=== PATIENT | male | born 1980 | race Caucasian/White ===

== ENCOUNTER 2016-08-08 10:06 | Observation (INO) | payer BC ==
[2016-08-08] MEDS ORDERED: BABY ASPIRIN 81 MG CHEW PO ONE (10:35)
--- NOTE | 2016-08-08 10:36 | ERPHSYRPT ---
- History of Present Illness Time Seen by Provider: 08/08/16 10:35 Source: patient Exam Limitations: clinical condition Patient Subjective Stated Complaint: Pulled a transmission out of a vehicle a week ago and was having neck and left shoulder pain. Also nausea. This has not went away and this am woke up with chest pain, left shoulderr neck and middle back pain. very diaphoretic and slightly sob. Triage Nursing Assessment: alert and oriented. pink warm and clammy. breath sounds clear and equal. normal heart tones. elevated b/p. no dependant edema Physician History: PATIENT PULLED TRANSMISSION OUT OF VEHICLE 1 WEEK AGO AND COMPLAINS OF SHARP PAINS BETWEEN SHOULDER BLADES X 5 DAYS, AND DEVELOPED SUBSTERNAL TIGHTNESS TODAY ASSOCIATED WITH DIAPHORESIS AND DYSPNEA. DENIES FEVER, COUGH, RADIATION OF PAIN TO JAW, SHOULDER OR BACK. Timing/Duration: day(s) Activities at Onset: none Quality: sharpness, stabbing (IN BACK, AND TIGHTNESS IN ANTERIOR CHEST) Location: substernal Chest Pain Radiation: no radiation Severity of Pain-Max: moderate Severity of Pain-Current: moderate Modifying Factors: Improves With: nothing Nitro Today/Relief: 0.4 mg x 3, provided by ED Aspirin Treatment Today: 81 mg x 4, provided at home Associated Symptoms: shortness of breath Prior Chest Pain/Cardiac Workup: no prior chest pain Allergies/Adverse Reactions: No Known Drug Allergies Allergy (Unverified 08/08/16 10:35) Home Medications: No Home Meds 1 [facility] UD 08/08/16 [History] Hx Influenza Vaccination/Date Given: No Hx Pneumococcal Vaccination/Date Given: No Immunizations Up to Date: Yes - Review of Systems Constitutional: No Fever, No Chills Eyes: No Symptoms Ears, Nose, & Throat: No Symptoms Respiratory: Dyspnea, No Cough Cardiac: Chest Pain, No Edema, No Syncope Abdominal/Gastrointestinal: No Abdominal Pain, No Nausea, No Vomiting, No Diarrhea Genitourinary Symptoms: No Symptoms, No Dysuria Musculoskeletal: No Symptoms, No Back Pain, No Neck Pain Skin: Skin Lesions, No Rash Neurological: No Dizziness, No Focal Weakness, No Sensory Changes Psychological: No Symptoms Endocrine: No Symptoms All Other Systems: Reviewed and Negative - Past Medical History Pertinent Past Medical History: No - Past Surgical History Past Surgical History: No - Social History Smoking Status: Light tobacco smoker Exposure to second hand smoke: No Drug Use: none Patient Lives Alone: No - Nursing Vital Signs Nursing Vital Signs: Initial Vital Signs Temperature 99.5 F Temperature Source Oral Pulse Rate [] 100 Pulse Rate 90 Respiratory Rate 18 Blood Pressure [] 124/80 Pain Intensity 0 - Physical Exam General Appearance: no apparent distress, alert Eye Exam: PERRL/EOMI, eyes nml inspection Ears, Nose, Throat Exam: normal ENT inspection, moist mucous membranes Neck Exam: normal inspection, non-tender, supple Respiratory Exam: normal breath sounds, lungs clear, No respiratory distress Cardiovascular Exam: regular rate/rhythm, normal heart sounds, tachycardia, No edema Gastrointestinal/Abdomen Exam: soft, normal bowel sounds (NONTENDER), No tenderness, No mass Back Exam: normal inspection, normal range of motion, other (NO PARASPINAL THORACIC TENDERNESS), No CVA tenderness, No vertebral tenderness Extremity Exam: normal inspection, normal range of motion Neurologic Exam: alert, oriented x 3, cooperative, normal mood/affect, nml cerebellar function, sensation nml, No motor deficits Skin Exam: normal color, warm, dry Lymphatic Exam: No adenopathy SpO2 Interpretation: normal SpO2: 95 Oxygen Delivery: Nasal Cannula - Course EKG Interpreted by Me: RATE, Sinus Tach, NORMAL AXIS - Radiology Exams Chest X-ray Interpretation: Interpreted by me, Negative Ordered Tests: Active Orders 24 hr Category Date Time Status Bedrest ROUTINE Activity 08/08/16 12:21 Ordered Bedrest with BRP/BSC ROUTINE Activity 08/08/16 12:22 Ordered Admission/Status Order ROUTINE Care 08/08/16 12:21 Ordered Call Admit Doctor for Orders ROUTINE Care 08/08/16 12:21 Ordered Kosher Inspector STAT Care 08/08/16 10:35 Active Code Status Order ROUTINE Care 08/08/16 12:22 Ordered EKG-ER Only STAT Care 08/08/16 10:35 Active EKG-ER Only STAT Care 08/08/16 11:36 Active IV Care Q6H Care 08/08/16 12:22 Ordered IV Insertion STAT Care 08/08/16 10:35 Active Implement Chest Pain Pathway ROUTINE Care 08/08/16 12:22 Ordered Oxygen-ED Only NASAL CANNULA 2 lpm Care 08/08/16 10:35 Active Juan Manuel Montgomerye, Apply ROUTINE Care 08/08/16 12:22 Ordered Telemetry ROUTINE Care 08/08/16 12:22 Ordered Vital Signs Q4H Care 08/08/16 12:21 Ordered Weight,Daily 0600 Care 08/08/16 12:22 Ordered Cardiac Diet Diet 08/08/16 Dinner Ordered CHEST 1 VIEW (PORTABLE) Stat Exams 08/08/16 10:35 Taken BMP Stat Lab 08/08/16 11:00 Completed CBC W DIFF Stat Lab 08/08/16 11:00 Completed D-DIMER QUANTITATION Stat Lab 08/08/16 11:00 Completed LIPID PROFILE AM.LAB Lab 08/09/16 04:00 Ordered TROPONIN Q3H Lab 08/08/16 11:00 Completed TROPONIN Q3H Lab 08/08/16 13:45 Ordered TROPONIN Q3H Lab 08/08/16 16:45 Ordered TROPONIN Q3H Lab 08/08/16 19:45 Ordered TROPONIN Q3H Lab 08/08/16 22:45 Ordered EKG Q8HX2,QAMX3,PRN RT 08/08/16 12:22 Ordered Oxygen NASAL CANNULA 2 lpm RT 08/08/16 12:24 Ordered Pulse Oximetry Q4H RT 08/08/16 12:22 Ordered Transfer Order Routine Transfer 08/08/16 12:21 Ordered Medication Summary Generic Name Dose Route Start Last Admin Trade Name Freq PRN Reason Stop Dose Admin Sodium Chloride 1,000 mls @ 100 mls/hr 08/08/16 10:45 08/08/16 10:47 Sodium Chloride 0.9% 1000 Ml IV 09/07/16 10:44 100 mls/hr .Q10H ARLIN Administration Discontinued Medications Generic Name Dose Route Start Last Admin Trade Name Freq PRN Reason Stop Dose Admin Aspirin 324 mg 08/08/16 10:35 08/08/16 10:46 Baby Aspirin 81 Mg Chew PO 08/08/16 10:36 Not Given STAT ONE Nitroglycerin 0.4 mg 08/08/16 10:47 08/08/16 10:40 Nitrostat 0.4 Mg (Ed) SL 08/08/16 10:48 0.4 mg STAT ONE Administration Nitroglycerin 0.4 mg 08/08/16 10:48 08/08/16 10:45 Nitrostat 0.4 Mg (Ed) SL 08/08/16 10:49 0.4 mg STAT ONE Administration Nitroglycerin 0.4 mg 08/08/16 11:00 06/04/17 10:50 Nitrostat 0.4 Mg Tablet SL 08/08/16 11:01 0.4 mg STAT ONE Administration Nitroglycerin 1 gm 08/08/16 11:58 08/08/16 12:12 Nitro-Bid 2% Ud Packets TOP 08/08/16 11:59 1 gm STAT ONE Administration Nitroglycerin Confirm 08/08/16 12:12 Nitro-Bid 2% Ud Packets Administered 08/08/16 12:13 Dose 1 gm .ROUTE .STK-MED ONE Lab/Rad Data: Laboratory Result Diagrams 08/08/16 11:00 08/08/16 11:00 Laboratory Results 08/08/16 08/08/16 08/08/16 Range/Units 11:00 11:00 11:00 WBC (4.0-10.5) K/mm3 RBC (4.1-5.6) M/mm3 Hgb (12.5-18.0) gm/dl Hct (42-50) % MCV (78-100) fl MCH (26-32) pg MCHC (32-36) g/dl RDW (11.5-14.0) % Plt Count (150-450) K/mm3 MPV (6-9.5) fl Gran % (36.0-66.0) % Lymphocytes % (24.0-44.0) % Monocytes % (0.0-12.0) % Eosinophils % (0.00-5.0) % Basophils % (0.0-0.4) % Basophils # (0-0.4) D-Dimer 384.40 (0.00-500.00) ng/mL Sodium 141 (136-145) mEq/L Potassium 3.9 (3.5-5.1) mEq/L Chloride 103 (98-107) mEq/L Carbon Dioxide 28.4 (21-32) mEq/L Anion Gap 13.3 (5-15) MEQ/L BUN 11 (9-20) mg/dL Creatinine 1.16 (0.55-1.30) mg/dl Estimated GFR > 60 ML/MIN Glucose 105 (70-110) MG/DL Calcium 9.9 (8.5-10.1) mg/dL Troponin I 0.038 (0.000-0.056) ng/ml 08/08/16 Range/Units 11:00 WBC 6.6 (4.0-10.5) K/mm3 RBC 5.82 H (4.1-5.6) M/mm3 Hgb 17.3 (12.5-18.0) gm/dl Hct 51.0 H (42-50) % MCV 87.6 (78-100) fl MCH 29.7 (26-32) pg MCHC 33.9 (32-36) g/dl RDW 13.1 (11.5-14.0) % Plt Count 171 (150-450) K/mm3 MPV 10.8 H (6-9.5) fl Gran % 54.8 (36.0-66.0) % Lymphocytes % 24.1 (24.0-44.0) % Monocytes % 20.2 H (0.0-12.0) % Eosinophils % 0.3 (0.00-5.0) % Basophils % 0.6 (0.0-0.4) % Basophils # 0.04 (0-0.4) D-Dimer (0.00-500.00) ng/mL Sodium (136-145) mEq/L Potassium (3.5-5.1) mEq/L Chloride (98-107) mEq/L Carbon Dioxide (21-32) mEq/L Anion Gap (5-15) MEQ/L BUN (9-20) mg/dL Creatinine (0.55-1.30) mg/dl Estimated GFR ML/MIN Glucose (70-110) MG/DL Calcium (8.5-10.1) mg/dL Troponin I (0.000-0.056) ng/ml - Progress Progress: improved Progress Note: 08/08/16 12:19 PATIENT TOOK BABY ASPIRIN 325MG AT HOME, GIVEN NTG SL X 3 DOSES WITH COMPLETE OF PAIN. Discussed with : Fidel Oswald (DISCUSSED WITH DR Landry JEAN [id number] ACCEPTS ADMISSION FOR OBSERVATION) - Departure Time of Disposition: 12:26 Departure Disposition: Observation Clinical Impression: Acute chest pain Condition: Stable Critical Care Time: No Referrals: DOCTOR,NO FAMILY [Primary Care Provider] -
[2016-08-08] MEDS ORDERED: Nitrostat 0.4 MG (ED) SL ONE ×2 (10:47→10:48)
[2016-08-08] MEDS: Sodium Chloride 0.9% 1000 ML 1,000 ML IV SCH ×2 (10:47→13:49)
[2016-08-08] MEDS ORDERED: Nitrostat 0.4 MG Tablet SL ONE (11:00)
[2016-08-08 11:24] LABS: BASOPHIL % 0.6 % (0.0-0.4); Eosinophil % 0.3 % (0.00-5.0); Granulocytes % 54.8 % (36.0-66.0); Lymphocytes % 24.1 % (24.0-44.0); Mean Cell Volume 87.6 fl (78-100); Mean Corpuscular Hemoglobin 29.7 pg (26-32); Mean Platelet Volume 10.8 fl (6-9.5); Monocytes % 20.2 % (0.0-12.0); Platelet Count 171 K/mm3 (150-450); Red Blood Count 5.82 M/mm3 (4.1-5.6); Red Cell Distribution Width 13.1 % (11.5-14.0); White Blood Count 6.6 K/mm3 (4.0-10.5)
[2016-08-08 11:37] LABS: ANION GAP 13.3 MEQ/L (5-15); BLOOD UREA NITROGEN 11 mg/dL (9-20); CHLORIDE 103 mEq/L (98-107); Carbon Dioxide 28.4 mEq/L (21-32); Glucose 105 MG/DL (70-110); Potassium 3.9 mEq/L (3.5-5.1); SODIUM 141 mEq/L (136-145)
[2016-08-08] MEDS ORDERED: NITRO-BID 2% UD PACKETS TOP ONE (11:58)
[2016-08-08] MEDS ORDERED: NITRO-BID 2% UD PACKETS ONE (12:12)
[2016-08-08] MEDS ORDERED: MORPHINE SULFATE 2 MG INJ IV PRN (12:21)
[2016-08-08] MEDS ORDERED: Zofran 4 MG/2 ML VIAL IV PRN (12:21)
[2016-08-08] MEDS ORDERED: MAALOX ES 30 ML UNIT DOSE PO PRN (12:21)
[2016-08-08] MEDS ORDERED: Senokot-S Tablet PO PRN (12:21)
[2016-08-08] MEDS ORDERED: MILK OF MAGNESIA 30 ML PO PRN (12:21)
[2016-08-08] MEDS ORDERED: TYLENOL 325 MG PO PRN (12:21)
[2016-08-08] MEDS ORDERED: Nitrostat 0.4 MG Tablet SL PRN (12:21)
[2016-08-08] MEDS ORDERED: Sodium Chloride 0.9% 500 ML 500 ML IV SCH (12:30)
--- NOTE | 2016-08-08 12:41 | XRAY ---
Indication: Chest pain. Comparison: July 07, 2009. Portable apical lordotic chest less inflated but remains clear. Heart is not enlarged. Bony thorax intact. Impression: Stable nonacute chest.
[2016-08-08] MEDS: NITRO-BID 2% UD PACKETS TOP SCH (20:07)
[2016-08-08] MEDS: Pepcid 20 MG VIAL IV SCH (21:37)
[2016-08-09] MEDS: Sodium Chloride 0.9% 1000 ML 1,000 ML IV SCH (00:54)
[2016-08-09] MEDS: NITRO-BID 2% UD PACKETS TOP SCH (05:57)
[2016-08-09] MEDS: Pepcid 20 MG VIAL IV SCH (09:21)
[2016-08-09] MEDS ORDERED: Ecotrin 325 MG PO SCH (10:00)
[2016-08-09] MEDS ORDERED: Toprol-Xl 25MG Tablets PO SCH (10:00)
[2016-08-09 11:54] VITALS: BP 138/91; PULSE 80
[2016-08-09 12:01] VITALS: O2SAT 99
--- NOTE | 2016-08-09 14:05 | PCM.SSS ---
History of Present Illness - Chief Complaint Chief Complaint: c/o mid neck pain History of Present Illness: is a 36 year old male.Pulled a transmission out of a vehicle a week ago and was having neck and left shoulder pain. Also nausea. This has not went away and this am woke up with chest pain, left shoulderr neck and middle back pain. very diaphoretic and slightly sob - Review of Systems Constitutional: No Fever, No Chills Eyes: No Symptoms Ears, Nose, & Throat: No Symptoms Respiratory: No Cough, No Short Of Breath Cardiac: Other (neck and mid back pain), No Chest Pain, No Edema, No Syncope Abdominal/Gastrointestinal: No Abdominal Pain, No Nausea, No Vomiting, No Diarrhea Genitourinary Symptoms: No Dysuria Musculoskeletal: No Back Pain, No Neck Pain Skin: No Rash Neurological: No Dizziness, No Focal Weakness, No Sensory Changes Psychological: No Symptoms Endocrine: No Symptoms Hematologic/Lymphatic: No Symptoms Immunological/Allergic: No Symptoms Medications & Allergies Home Medications: Home Medication List No Home Meds 1 [facility] UD 08/08/16 [History Confirmed 08/08/16] Allergies/Adverse Reactions: Allergies Allergy/AdvReac Type Severity Reaction Status Date / Time No Known Drug Allergies Allergy Unverified 08/08/16 10:35 - Past Medical History Past Medical History: No - Past Surgical History Past Surgical History: Yes GI Surgical History: Hernia Repair Musculskeletal Surgical Hx: Other Other Surgical History: "pinky finger" boxer fracture on left hand, right wrist fracture both had pins but have been removed. - Social History Smoking Status: Current some day smoker Exposure to second hand smoke: No Alcohol: Daily Drug Use: none - Physical Exam Vital Signs: Vital Signs - 24 hr Temp Pulse Resp BP Pulse Ox 08/09/16 12:00 99 08/09/16 11:53 98.6 F 80 20 138/91 97 08/09/16 08:00 98 08/09/16 07:52 98.7 F 92 H 21 136/90 95 08/09/16 05:24 97.9 F 68 18 122/74 98 08/09/16 04:00 98 08/09/16 00:00 98 08/08/16 23:30 98.1 F 87 20 123/85 98 08/08/16 20:00 99 08/08/16 19:45 98.4 F 93 H 18 139/76 99 08/08/16 16:34 97.6 F 97 H 18 108/62 96 08/08/16 16:00 95 08/08/16 14:44 95 General Appearance: no apparent distress, alert Neurologic Exam: alert, oriented x 3, cooperative, normal mood/affect, nml cerebellar function, nml station & gait, sensation nml, No motor deficits Eye Exam: PERRL/EOMI, eyes nml inspection Ears, Nose, Throat Exam: normal ENT inspection, TMs normal, pharynx normal, moist mucous membranes Neck Exam: normal inspection, non-tender, supple, full range of motion Respiratory Exam: normal breath sounds, lungs clear, No respiratory distress Cardiovascular Exam: regular rate/rhythm, normal heart sounds, normal peripheral pulses Gastrointestinal/Abdomen Exam: soft, normal bowel sounds, No tenderness, No mass Back Exam: normal inspection, normal range of motion, No CVA tenderness, No vertebral tenderness Extremity Exam: normal inspection, normal range of motion, pelvis stable Skin Exam: normal color, warm, dry, No rash Lymphatic Exam: No adenopathy Results - Labs Lab/Micro Results: Lab Results-Last 24 Hours 08/08/16 08/08/16 08/08/16 Range/Units 13:45 17:05 20:10 Troponin I 0.034 0.022 0.021 (0.000-0.056) ng/ml Triglycerides (30-200) mg/dL Cholesterol (100-200) mg/dL LDL Cholesterol (5-99) mg/dL HDL Cholesterol (35-60) mg/dL Heart Disease Risk Ratio 08/08/16 08/09/16 Range/Units 23:22 05:30 Troponin I 0.030 (0.000-0.056) ng/ml Triglycerides 94 (30-200) mg/dL Cholesterol 137 (100-200) mg/dL LDL Cholesterol 91 (5-99) mg/dL HDL Cholesterol 38 (35-60) mg/dL Heart Disease Risk Ratio 3.6 - Other Procedures and Tests Respiratory Therapy 08/10/16 05:00 EKG ROUTINE 08/11/16 05:00 EKG ROUTINE Assessment/Plan (1) Acute chest pain Current Visit: Yes Status: Acute Assessment & Plan: [place] ruled out, patient is chest pain free, will schedule stress test as outpatient Code(s): R07.9 - CHEST PAIN, UNSPECIFIED Hospital Summary - Hospital Course Hospital Course: Chief Complaint Diagnosis CP R/O [place] Allergies Allergy/AdvReac Type Severity Reaction Status Date / Time No Known Drug Allergies Allergy Unverified 08/08/16 10:35 Vital Signs (Last 24 hours) Temp Pulse Resp BP Pulse Ox 08/09/16 12:00 99 08/09/16 11:53 98.6 F 80 20 138/91 97 08/09/16 08:00 98 08/09/16 07:52 98.7 F 92 H 21 136/90 95 08/09/16 05:24 97.9 F 68 18 122/74 98 08/09/16 04:00 98 08/09/16 00:00 98 08/08/16 23:30 98.1 F 87 20 123/85 98 08/08/16 20:00 99 08/08/16 19:45 98.4 F 93 H 18 139/76 99 08/08/16 16:34 97.6 F 97 H 18 108/62 96 08/08/16 16:00 95 08/08/16 14:44 95 Home Medications Medication Instructions Recorded Confirmed Last Taken Type No Home Meds 1 [facility] UD 08/08/16 08/08/16 Unknown History Current Medications Generic Name Dose Route Start Last Admin Trade Name Freq PRN Reason Stop Dose Admin Acetaminophen 650 mg 08/08/16 12:21 08/08/16 16:42 Tylenol 325 Mg PO 09/07/16 12:20 650 mg Q4H PRN PRN Administration PAIN AND/OR FEVER Al Hydrox/Mg Hydrox/Simethicone 30 ml 08/08/16 12:21 Maalox Es 30 Ml Unit Dose PO 09/07/16 12:20 Q4H PRN PRN INDIGESTION Aspirin 325 mg 08/09/16 10:00 08/09/16 09:21 Ecotrin 325 Mg PO 09/08/16 09:59 325 mg DAILY ARLIN Administration Famotidine 20 mg 08/08/16 22:00 08/09/16 09:21 Pepcid 20 Mg Vial IV 09/07/16 21:59 20 mg Q12HT ARLIN Administration Sodium Chloride 1,000 mls @ 100 mls/hr 08/08/16 10:45 08/09/16 00:54 Sodium Chloride 0.9% 1000 Ml IV 09/07/16 10:44 100 mls/hr .Q10H ARLIN Administration Magnesium Hydroxide 30 - 60 ml 08/08/16 12:21 Milk Of Magnesia 30 Ml PO 09/07/16 12:20 QDP PRN CONSTIPATION Metoprolol Succinate 25 mg 08/09/16 10:00 08/09/16 09:21 Toprol-Xl 25mg Tablets PO 09/08/16 09:59 25 mg DAILY ARLIN Administration Morphine Sulfate 2 mg 08/08/16 12:21 Morphine Sulfate 2 Mg Inj IV 08/13/16 12:20 .Q15MIN PRN PRN CHEST PAIN Nitroglycerin 0.4 mg 08/08/16 12:21 Nitrostat 0.4 Mg Tablet SL 09/07/16 12:20 .Q5MIN PRN CHEST PAIN Nitroglycerin 1 gm 08/08/16 20:00 08/09/16 05:57 Nitro-Bid 2% Ud Packets TOP 09/07/16 19:59 Not Given Q8HT [facility] Ondansetron HCl 4 mg 08/08/16 12:21 Zofran 4 Mg/2 Ml Vial IV 09/07/16 12:20 Q4H PRN PRN NAUSEA/VOMITING Senna/Docusate Sodium 2 udtab 08/08/16 12:21 Senokot-S Tablet PO 09/07/16 12:20 BID PRN PRN CONSTIPATION Discontinued Medications Generic Name Dose Route Start Last Admin Trade Name Freq PRN Reason Stop Dose Admin Aspirin 324 mg 08/08/16 10:35 08/08/16 10:46 Baby Aspirin 81 Mg Chew PO 08/08/16 10:36 Not Given STAT ONE Sodium Chloride 500 mls @ 75 mls/hr 08/08/16 12:30 Sodium Chloride 0.9% 500 Ml IV 09/07/16 12:29 .Q6H40M [facility] Nitroglycerin 0.4 mg 08/08/16 10:47 08/08/16 10:40 Nitrostat 0.4 Mg (Ed) SL 08/08/16 10:48 0.4 mg STAT ONE Administration Nitroglycerin 0.4 mg 08/08/16 10:48 08/08/16 10:45 Nitrostat 0.4 Mg (Ed) SL 08/08/16 10:49 0.4 mg STAT ONE Administration Nitroglycerin 0.4 mg 08/08/16 11:00 08/08/16 10:50 Nitrostat 0.4 Mg Tablet SL 08/08/16 11:01 0.4 mg STAT ONE Administration Nitroglycerin 1 gm 08/08/16 11:58 08/08/16 12:12 Nitro-Bid 2% Ud Packets TOP 08/08/16 11:59 1 gm STAT ONE Administration Nitroglycerin Confirm 08/08/16 12:12 Nitro-Bid 2% Ud Packets Administered 08/08/16 12:13 Dose 1 gm .ROUTE .STK-MED ONE Intake & Output (Last 24 hours) 08/07/16 08/08/16 08/09/16 08/10/16 11:59 11:59 11:59 11:59 Intake Total 3412 720 Output Total 300 300 Balance 3112 420 Weight 108.862 kg 106.413 kg Laboratory Results (Last 24 hours) 08/09/16 08/08/16 08/08/16 05:30 23:22 20:10 Troponin I 0.030 0.021 Triglycerides 94 Cholesterol 137 LDL Cholesterol 91 HDL Cholesterol 38 Heart Disease Risk Ratio 3.6 08/08/16 08/08/16 17:05 13:45 Troponin I 0.022 0.034 Triglycerides Cholesterol LDL Cholesterol HDL Cholesterol Heart Disease Risk Ratio Orders (Last 24 hours) Category Date Time Status Twist Packer/Discharge Plan Cons 08/08/16 13:19 Active Cardiac Diet Diet 08/08/16 Dinner Active LIPID PROFILE AM.LAB Lab 08/09/16 05:30 Completed TROPONIN Q3H Lab 08/08/16 13:45 Completed TROPONIN Q3H Lab 08/08/16 17:05 Completed TROPONIN Q3H Lab 08/08/16 20:10 Completed TROPONIN Q3H Lab 08/08/16 23:22 Completed Aspirin EC 325 mg [Ecotrin 325 MG] Med 08/09/16 10:00 Active 325 mg PO DAILY Famotidine 20 mg Vial [Pepcid 20 MG VIAL] Med 08/08/16 22:00 Active 20 mg IV Q12HT Metoprolol Succinate 25 mg Xl* [Toprol-Xl 25MG Tablets* Med 08/09/16 10:00 Active ] 25 mg PO DAILY Nitroglycerin 2 %Ointment [Nitro-Bid 2% Ud Packets Med 08/08/16 20:00 Active *] 1 gm TOP Q8HT EKG ROUTINE RT 08/08/16 20:00 Completed EKG ROUTINE RT 08/09/16 05:00 Completed EKG ROUTINE RT 08/10/16 05:00 Active EKG ROUTINE RT 08/11/16 05:00 Active Smoking Cessation Education RT 08/08/16 13:47 Completed Patient Care Notes (Last 24 hours) 08/09/16 09:29 Nursing Note by Stephani Short Pt education regarding new drug Toprol XL gave to patient. Initialized on 08/09/16 09:29 - END OF NOTE 08/09/16 09:24 Case Management Note by Hillary Baird DISCHARGE PLAN REVIEWED, PROVIDES SELF CARE, INDEPENDENT WITH ALL ADL'S. PLAN TO RETURN HOME TO PRE EPISODIC LEVEL OF FNX. Initialized on 08/09/16 09:24 - END OF NOTE 08/09/16 05:46 Nursing Note by Kathya Barrios A patient was diaphoretic while sleeping. no c/o of chest pain or short or breath. tele reads SR with a HR 84. Initialized on 08/09/16 05:46 - END OF NOTE 08/08/16 18:02 Nursing Note by Stephani Short Pt states that the tylenol has not helped his headache, so nitropaste was removed at this time. This nurse instructed patient to let staff now if chest pain returns. Initialized on 08/08/16 18:02 - END OF NOTE - Vitals & Intake/Output Vital Signs: Vital Signs Temperature 98.6 F 08/09/16 11:53 Pulse Rate 80 08/09/16 11:53 Respiratory Rate 20 08/09/16 11:53 Blood Pressure 138/91 08/09/16 11:53 O2 Sat by Pulse Oximetry 99 08/09/16 12:00 Oxygen-Last Documented O2 Percentage 2 Liters = 28% Intake & Output: Intake & Output 08/07/16 08/08/16 08/09/16 08/10/16 11:59 11:59 11:59 11:59 Intake Total 3412 720 Output Total 300 300 Balance 3112 420 Weight 106.413 kg - Lab Result Diagrams: 08/08/16 11:00 08/08/16 11:00 Lab Results-Last 24 Hrs: Lab Results-Last 24 Hours 08/08/16 08/08/16 08/08/16 Range/Units 13:45 17:05 20:10 Troponin I 0.034 0.022 0.021 (0.000-0.056) ng/ml Triglycerides (30-200) mg/dL Cholesterol (100-200) mg/dL LDL Cholesterol (5-99) mg/dL HDL Cholesterol (35-60) mg/dL Heart Disease Risk Ratio 08/08/16 08/09/16 Range/Units 23:22 05:30 Troponin I 0.030 (0.000-0.056) ng/ml Triglycerides 94 (30-200) mg/dL Cholesterol 137 (100-200) mg/dL LDL Cholesterol 91 (5-99) mg/dL HDL Cholesterol 38 (35-60) mg/dL Heart Disease Risk Ratio 3.6 - Procedures and Test Procedures and Tests throughout Hospitalization: Therapy Orders & Screens 08/08/16 12:24 Oxygen NASAL CANNULA 2 lpm Comment: chest pain Diagnosis: CP R/O [place] 08/08/16 13:47 Smoking Cessation Education Comment: Diagnosis: CP R/O [place] Smoking Status: Current some day smoker Have you smoked in the past 12 months: Yes Do you dip or chew tobacco: Yes 08/08/16 20:00 EKG ROUTINE Comment: Diagnosis: CP R/O [place] 08/09/16 05:00 EKG ROUTINE Comment: Diagnosis: CP R/O [place] 08/10/16 05:00 EKG ROUTINE Comment: Diagnosis: CP R/O [place] 08/11/16 05:00 EKG ROUTINE Comment: Diagnosis: CP R/O [place] - Discharge Discharge Date: 08/09/16 Disposition: Home, Self-Care Condition: Stable Prescriptions: No Action No Home Meds 1 ea [facility] UD Follow up with: DOCTOR,NO FAMILY [Primary Care Provider] -
== END 2016-08-09 14:45 | disposition home or self-care (01) ==
LOC: ED 10:06 → MED SURG 12:45
PROVIDERS: ADMIT General Practice; ATTEND General Practice
DX: R07.9 Chest pain, unspecified (principal)
CPT/HCPCS: 36000; 36415; 71010; 80048; 80061; 82962; 83721; 84484; 85025; 85379; 93005; 93041; 93268; 96360; 99285; G0378; A9270-GY